=== PATIENT | female | born 1960 | race Caucasian/White ===

== ENCOUNTER 2018-01-17 12:23 | Emergency (ER) | payer OTHER, BC ==
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
[2018-01-17 15:59] VITALS: BP 119/70
== END 2018-01-17 15:59 | disposition home or self-care (01) ==
LOC: ER 12:23
DX: T14.8XXA Other injury of unspecified body region, initial encounter (principal); S60.011A Contusion of right thumb without damage to nail, initial encounter; S50.812A Abrasion of left forearm, initial encounter; R51 Headache; M54.2 Cervicalgia; M25.511 Pain in right shoulder; M54.9 Dorsalgia, unspecified; M79.10 Myalgia, unspecified site; M25.40 Effusion, unspecified joint; V43.52XA Car driver injured in collision with other type car in traffic accident, initial encounter; W22.11XA Striking against or struck by driver side automobile airbag, initial encounter; F17.210 Nicotine dependence, cigarettes, uncomplicated
CPT/HCPCS: 99283